=== PATIENT | male | born 1965 ===

== ENCOUNTER 2020-12-19 12:41 | Emergency (ER) | payer OTHER ==
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
--- NOTE | 2020-12-19 14:08 | XRay Report ---
XR ankle 3+V RT INDICATION / CLINICAL INFORMATION: crush injury; [address] vs. foot. COMPARISON: None available. FINDINGS: BONES/JOINT(S): No acute fracture or subluxation. 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 SOFT TISSUES: No significant abnormality. ADDITIONAL FINDINGS: None. Signer Name: Tyler Ortega MD Signed: 12/19/2020 2:04 PM Workstation Name: [id number]
--- NOTE | 2020-12-19 14:09 | XRay Report ---
XR foot 3+V RT INDICATION / CLINICAL INFORMATION: crush injury; 18 [address] vs foot. COMPARISON: None available. FINDINGS: BONES/JOINT(S): No acute fracture or subluxation. 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 SOFT TISSUES: Mild generalized soft tissue swelling. ADDITIONAL FINDINGS: None. Signer Name: Tyler Ortega MD Signed: 12/19/2020 2:04 PM Workstation Name: [id number]
[2020-12-19] MEDS ORDERED: KETOROLAC 30 MG/1 ML INJ IM ONE (14:19)
[2020-12-19] MEDS ORDERED: NEOMY 3.5 MG/BACIT 400 UNITS/POLY B 5000 UNITS/GM OINT PACKET TP ONE (14:19)
[2020-12-19 16:14] VITALS: BP 126/81
== END 2020-12-19 16:14 | disposition home or self-care (01) ==
LOC: ED 12:41
DX: S90.31XA Contusion of right foot, initial encounter (principal); S93.491A Sprain of other ligament of right ankle, initial encounter; Z79.899 Other long term (current) drug therapy; X50.1XXA Overexertion from prolonged static or awkward postures, initial encounter; Y93.89 Activity, other specified; Y92.89 Other specified places as the place of occurrence of the external cause; Y99.8 Other external cause status
CPT/HCPCS: 29515; 73610; 73630; 96372; 99283; A6250; J1885